=== PATIENT | female | born 1980 | race African-American/Black ===

== ENCOUNTER 2019-11-19 15:12 | Emergency (ER) | payer OTHER, SELFPAY ==
[2019-11-19 15:15] VITALS: BP 104/74; PULSE 73; RESP 13; TEMP 36.9; O2SAT 100; BMI 20.9
--- NOTE | 2019-11-19 16:11 | DI.RAD.S_ITS ---
PROCEDURE: XR WRIST LT MIN 3V INDICATIONS: wrist and hand pain into thumb area TECHNIQUE: 4 views of the wrist were acquired. COMPARISON: None. FINDINGS: Bones: No fractures or dislocations. No suspicious bony lesions. Scaphoid view: Negative Soft tissues: No suspicious soft tissue calcifications. IMPRESSION: No acute fracture. No osseous lesion. If symptoms and/or clinical suspicion for pathology persist, further assessment with repeat, or advanced imaging (e.g., CT, MRI, or bone scan) may be helpful for further assessment. Dictated by: Clair Camacho M.D. on 11/19/2019 at 15:30 Approved by: Clair Camacho M.D. on 11/19/2019 at 15:31
--- NOTE | 2019-11-19 16:11 | DI.RAD.S_ITS ---
PROCEDURE: XR HAND LT MIN 3V INDICATIONS: wrist and hand pain into thumb area TECHNIQUE: 3 views of the hand(s) acquired. COMPARISON: None. FINDINGS: Bones: No fractures or dislocations. Carpal bones are normally aligned. No suspicious bony lesions. Soft tissues: No suspicious soft tissue calcifications. IMPRESSION: No acute fracture. No osseous lesion. If symptoms and/or clinical suspicion for pathology persist, further assessment with repeat, or advanced imaging (e.g., CT, MRI, or bone scan) may be helpful for further assessment. Dictated by: Clair Camacho M.D. on 11/19/2019 at 15:31 Approved by: Clair Camacho M.D. on 11/19/2019 at 15:31
[2019-11-19 16:32] VITALS: PULSE 70
[2019-11-19 17:28] VITALS: BP 103/63
--- NOTE | 2019-11-19 20:26 | ED_ITS ---
HPI - Extremity Problem <HUONG Stovall - Last Filed: 11/19/19 20:32> General Chief complaint: Extremity Problem,Nontraumatic Stated complaint: left arm swollen and pain from lifting at work Time Seen by Provider: 11/19/19 16:11 Source: patient Mode of arrival: Ambulatory Limitations: no limitations History of Present Illness HPI Narrative: The patient is a 38-year-old female nonsmoker denies pertinent medical history presents with a chief complaint of left wrist pain. She states she started a new job with lots of lifting, twisting her wrist a lot. She states she thinks she sprained her hand or wrist. Denies any falls or trauma. Denies any numbness or tingling. Has taken aspirin for pain twice. She states that she has pain extending down into her thumb. Related Data Previous Rx's Medication Instructions Recorded ketorolac 10 mg PO TID PRN #14 tab 11/19/19 Allergies Allergy/AdvReac Type Severity Reaction Status Date / Time No Known Drug Allergies Allergy Verified 11/19/19 15:20 Review of Systems <HUONG Stovall - Last Filed: 11/19/19 20:32> Review of Systems Narrative: GENERAL: Denies chills, fatigue, malaise, fever, sweats. HEENT: Denies sinus pain, ear pain, sore throat, difficulty swallowing, dizziness. RESPIRATORY: Denies dyspnea, cough, wheezing, hemoptysis, sputum. CARDIOVASCULAR: Denies chest pain, palpitations, orthopnea, edema, GASTROINTESTINAL: Denies nausea, vomiting, abdominal pain, diarrhea, constipation, melena. : Denies dysuria, frequency, incontinence, hematuria, urinary retention. MUSCULOSKELETAL: See HPI SKIN: Denies rash, skin lesions, or other NEUROLOGIC: Denies weakness, headache, numbness, change in speech, confusion, seizures, incoordination. PSYCHIATRIC: No concerning psychosocial issues. 12 point review of systems is negative except for those stated above Patient History <HUONG Stovall - Last Filed: 11/19/19 20:32> Social History Smoking Status: Unknown if ever smoked Smoking Status: Unknown if ever smoked alcohol intake frequency: holidays/special occasions only Substance Use Type: does not use Exam <HUONG Stovall - Last Filed: 11/19/19 20:32> Narrative Exam Narrative: GENERAL: This is a well-nourished, well-developed patient, no acute distress HEAD: Atraumatic. Normocephalic. No temporal or scalp tenderness. EYES: Pupils equal round and reactive. Extraocular motions intact. No scleral icterus. No injection or drainage. ENT: Nose without bleeding, purulent drainage or septal hematoma. Or mass. Airway patent. NECK: Trachea midline. No JVD or lymphadenopathy. Supple, nontender, no meningeal signs. CARDIOVASCULAR: Regular rate and rhythm RESPIRATORY: No cough. No increased respiratory effort. No accessory muscle use. EXTREMITIES: General pain to palpation left wrist, extending up to thumb. Negative phanel sign. Positive left radial pulse. Pain to palpation on dorsum of wrist. Able to slightly flex and extend pronate supinate. Decreased range of motion all gaines. Slight swelling noted on dorsum of wrist. Able to make a [place] with left thumb and 2nd digit. Able to flex and extend left thumb. NEURO: AOx3. SKIN: No rash or erythema on visible skin. No her femur your rash laceration or abrasion noted. Initial Vital Signs Initial Vital Signs: Vital Signs Temperature 98.5 F 11/19/19 15:15 Pulse Rate 73 11/19/19 15:15 Respiratory Rate 13 11/19/19 15:15 Blood Pressure 104/74 11/19/19 15:15 Pulse Oximetry 100 11/19/19 15:15 <Markie Ceja MD - Last Filed: 11/25/19 07:22> Initial Vital Signs Initial Vital Signs: Vital Signs Temperature 98.5 F 11/19/19 15:15 Pulse Rate 73 11/19/19 15:15 Respiratory Rate 13 11/19/19 15:15 Blood Pressure 104/74 11/19/19 15:15 Pulse Oximetry 100 11/19/19 15:15 Course <HUONG Stovall - Last Filed: 11/19/19 20:32> Orders Ordered: ED Orders 11/19/19 16:11 XR hand LT min 3V Stat XR wrist LT min 3V Stat Vital Signs Vital signs: Vital Signs - 8 hr 11/19/19 15:15 11/19/19 16:32 11/19/19 17:28 Temperature 98.5 F Pulse Rate 73 Pulse Rate [Left Radial] 70 Respiratory Rate 13 Blood Pressure 104/74 103/63 Pulse Oximetry 100 <Markie Ceja MD - Last Filed: 11/25/19 07:22> Orders Ordered: ED Orders 11/19/19 16:11 XR hand LT min 3V Stat XR wrist LT min 3V Stat Vital Signs Vital signs: Vital Signs - 8 hr 11/19/19 15:15 11/19/19 16:32 11/19/19 17:28 Temperature 98.5 F Pulse Rate 73 Pulse Rate [Left Radial] 70 Respiratory Rate 13 Blood Pressure 104/74 103/63 Pulse Oximetry 100 MDM - Extremity (Nontraumatic) <HUONG Stovall - Last Filed: 11/19/19 20:32> Imaging Data Extremity x-ray #1: Radiologist's Impression: [address] [place] [id number] XRay Report Signed Patient: Norbert Banerjee#: [id number] : 1980Acct:[id number] Age/Sex: 38 / FDate of Service: 11/19/19 Loc: ED Accession Number: [id number] Procedure: XR wrist LT min 3V Ordering Provider: Danielle Cason PROCEDURE: XR WRIST LT MIN 3V INDICATIONS: wrist and hand pain into thumb area TECHNIQUE: 4 views of the wrist were acquired. COMPARISON: None. FINDINGS: Bones: No fractures or dislocations. No suspicious bony lesions. Scaphoid view: Negative Soft tissues: No suspicious soft tissue calcifications. IMPRESSION: No acute fracture. No osseous lesion. If symptoms and/or clinical suspicion for pathology persist, further assessment with repeat, or advanced imaging (e.g., CT, MRI, or bone scan) may be helpful for further assessment. Dictated by: Clair Camacho M.D. on 11/19/2019 at 15:30 Approved by: Clair Camacho M.D. on 11/19/2019 at 15:31 Extremity x-ray #2: Radiologist's Impression: [address] [place] [id number] XRay Report Signed Patient: Norbert Banerjee#: [id number] : 1980Acct:[id number] Age/Sex: 38 / FDate of Service: 11/19/19 Loc: ED Accession Number: [id number] Procedure: XR hand LT min 3V Ordering Provider: Danielle Cason PROCEDURE: XR HAND LT MIN 3V INDICATIONS: wrist and hand pain into thumb area TECHNIQUE: 3 views of the hand(s) acquired. COMPARISON: None. FINDINGS: Bones: No fractures or dislocations. Carpal bones are normally aligned. No suspicious bony lesions. Soft tissues: No suspicious soft tissue calcifications. IMPRESSION: No acute fracture. No osseous lesion. If symptoms and/or clinical suspicion for pathology persist, further assessment with repeat, or advanced imaging (e.g., CT, MRI, or bone scan) may be helpful for further assessment. Dictated by: Clair Camacho M.D. on 11/19/2019 at 15:31 Approved by: Clair Camacho M.D. on 11/19/2019 at 15:31 [facility] Narrative Medical decision making narrative: The patient is a 38-year-old female who presents with a chief complaint of left hand and wrist pain after starting a new job lots of flexing, twisting and lifting. She is neurovascularly intact her stay in the emergency department. Her x-rays have no acute findings. She was placed in a wrist splint for comfort. I discussed at length rest ice compression elevation. Did prescribe Toradol. Patient was given work note for light duty as her exam indicates a wrist strain//brain. Encouraged follow-up with primary care provider as well as [employer]. Patient has no questions or concerns upon discharge and states understanding of return precautions as well as follow-up care Discharge Plan Departure Patient Disposition: Home Clinical Impression: Left wrist sprain Qualifiers: Encounter type: initial encounter Qualified Code(s): S63.502A - Unspecified sprain of left wrist, initial encounter Discharge Date/Time: 11/19/19 17:38 Instructions: DI for Wrist Sprain, How To Perform RICE (Rest, Ice, Compress, Elevate) Activity Restrictions/Additional Instructions: Thank you for trusting us with your care today. As I discussed, your x-ray shows no acute fracture. This does not rule out a soft tissue injury such as a ligament or tendon injury. It is important that you follow up with primary care provider, especially if worsening or no improvement. There can be fractures that did not show up on initial x-ray. We have placed you in a brace to help support. Please also use rest ice compression elevation. I sent a prescription of Toradol to [facility]. I have given you a prescription of Toradol. This is an NSAID. Do not combine it with other NSAIDs such as Aleve or ibuprofen. I suggest taking it with some food, as it can irritate your stomach. I have given you a note for light duty for a few days at work Please come back to the emergency department for any acute concerns Please follow-up with primary care provider. [employer] can help you identify a follow-up provider as well. Prescriptions: New ketorolac 10 mg tablet 10 mg PO TID PRN (Reason: pain) Qty: 14 RF: 0 Stand Alone Forms: Work Release Note
== END 2019-11-19 17:38 | disposition home or self-care (01) ==
PROVIDERS: Emergency Provider Nurse Practitioner Family
DX: S63.502A Unspecified sprain of left wrist, initial encounter (principal); X50.0XXA Overexertion from strenuous movement or load, initial encounter; Y99.0 Civilian activity done for income or pay
CPT/HCPCS: 29260; 73110; 73130; 99283